=== PATIENT | female | born 1965 | race Caucasian/White ===

== ENCOUNTER 2019-05-29 10:28 | Outpatient (CLI) | payer OTHER, SELFPAY ==
--- NOTE | 2019-05-29 | US_ITS ---
WS: [id number] Assessment of the right Achilles tendon, 05/29/2019 Clinical Data: RT ANKLE/JOINT PAIN Comparison: None. Findings: The Achilles tendon shows a normal signal at the insertion into the posterior superior calcaneus. Pro ximally there is an area of increased irregular echotexture and thickening. This may represent a tear of the Achilles tendon with hemorrhage into the tear. The tear is probably partial rather than compl ete. US/US soft tissue/extremity 70138 Impression: Probable partial tear of the Achilles tendon
== END 2019-05-29 10:29 | disposition home or self-care (01) ==
LOC: RADOUTREAD 12:15
PROVIDERS: Visit Provider Nurse Practitioner Family
DX: Z01.89 Encounter for other specified special examinations (principal)

== ENCOUNTER 2019-11-18 15:17 | Outpatient (CLI) | payer OTHER, SELFPAY ==
--- NOTE | 2019-11-18 15:30 | MM_ITS ---
WS: [id number] BILATERAL SCREENING DIGITAL MAMMOGRAM WITH CAD HISTORY: SCREENING COMPARISON: 10/14/2018 and 11/16/2015 Bilateral CC and MLO views submitted. Computer aided detection analyzed. Breast composition: There are scattered areas of fibroglandular density. No suspicious masses, microc alcifications or architectural distortion. MM/[place] [id number] IMPRESSION: BI-RADS: 1-Negative FOLLOW UP: 1 Year Follow-up
== END 2019-11-18 15:18 | disposition home or self-care (01) ==
LOC: RADSHAW 15:23
PROVIDERS: PCP Nurse Practitioner Family; Visit Provider Nurse Practitioner Family
DX: Z12.31 Encounter for screening mammogram for malignant neoplasm of breast (principal)
CPT/HCPCS: 77067

== ENCOUNTER 2024-07-03 07:53 | Emergency (ER) | payer OTHER, SELFPAY ==
[2024-07-03 08:00] VITALS: BP 164/98; PULSE 75; RESP 16; TEMP 36.6; O2SAT 99; BMI 40.3
--- NOTE | 2024-07-03 08:17 | USCV_ITS ---
BonnieSelene cappsh Age: 59 Gender: F : 1965 Exam Date: 07/03/2024 08:52 Ordering Phys: Иван Thrasher DO Technologist: Exam Location: [facility] Indication: lt foot and ankle swelling and redness PROCEDURES: Venous duplex imaging was performed in only the left lower extremity. The following venous structures were evaluated: common femoral vein, profunda vein, proximal portion of the greater saphenous vein, superficial femoral vein, and the popliteal vein. In addition, the posterior tibial and peroneal trunk were evaluated. FINDINGS: Normal 2-D Doppler and augmentation and compressibility throughout the lower extremity venous structures. Additional imaging through the proximal calf veins also reveals no thrombus. Limited evaluation of the greater saphenous vein is patent with no thrombus. CONCLUSIONS No DVT left lower extremity. Dr. Trudi Ferro DO (Electronically Signed) Final Date: 03 July 2024 11:06 S
--- NOTE | 2024-07-03 08:17 | XR_ITS ---
WS: [id number] XR foot LT min 3V* [id number] REASON FOR EXAM: pain swelling Dorsal lateral dislocation of the the first through fifth with small comminuted fracture fragments related to the first through the third metatarsals. XR/XR foot LT min 3V* [id number] IMPRESSION: Complete homolateral Lisfranc fracture dislocation. Without history of significant trauma this may represent a neuropathic abnormal ity.
[2024-07-03 08:42] LABS: Basophils # 0.1 10^3/uL (0.0-0.1); Basophils % 0.7 %; Eosinophils # 0.5 10^3/uL (0.0-0.8); Eosinophils % 3.9 %; Hematocrit 36.5 % (36-47); Lymphocytes # 2.3 10^3/uL (0.8-4.8); Lymphocytes % 17.9 %; Mean Corpuscular HGB Conc 32.3 g/dL (30-55); Mean Corpuscular Hemoglobin 27.8 pg (27-33); Mean Corpuscular Volume 85.9 fl (85-98); Mean Platelet Volume 9.3 fL (7.4-10.4); Monocytes # 1.2 10^3/uL (0.2-0.9); Monocytes % 9.5 %; Neutrophils # 8.47 10^3/uL (1.8-7.7); Neutrophils % 67.4 %; Nucleated Red Blood Cells % 0 %; Platelet Count 325 10^3/cmm (157-399); Red Blood Count 4.25 10^6/uL (3.85-5.65); Red Cell Distribution Width 12.7 % (12.1-15.1); White Blood Count 12.57 10^3/uL (3.29-11.43)
[2024-07-03 09:04] LABS: Alanine Aminotransferase 10 U/L (0-33); Albumin Level 3.3 g/dL (3.5-5.2); Alkaline Phosphatase 91 U/L (35-105); Aspartate Amino Transferase 12 U/L (0-32); Blood Urea Nitrogen 21 mg/dL (8-23); C Reactive Protein 41.4 mg/L (0.0-4.9); Calcium 9.2 mg/dL (8.5-10.5); Carbon Dioxide 21 mmol/L (22-29); Chloride 99 mmol/L (98-107); Creatinine Clr Calc Pharmacy 100.5353; Globulin 3.4 g/dL (1.3-4.6); Glomerular Filtration Rate 85.1 mL/min (90-130); Glucose 247 mg/dL (65-115); Osmolality Calculated 287 mOsm/kg (285-295); Sodium 133 mmol/L (136-145); Total Bilirubin 0.4 mg/dL (0.15-1.2); Total Protein 6.7 g/dL (6.6-8.7)
[2024-07-03 09:08] LABS: Anion Gap 17.3 (5-19); Potassium 4.3 mmol/L (3.5-5.1)
[2024-07-03 09:41] VITALS: BP 154/82; PULSE 77; RESP 21; O2SAT 99
--- NOTE | 2024-07-03 09:56 | W.ED.EXTPRO ---
HPI - Extremity Problem General: Chief complaint: Extremity Problem,Nontraumatic Stated complaint: lt leg swollen Time Seen by Provider: 07/03/24 07:54 History of Present Illness: 59-year-old female presents emergency room with left leg swelling for the last week progressively worsening pain in the left foot and lower leg. No known injury she she has no history of DVT or PE. She has not had any calf pain per se no intermittent claudication. Patient is diabetic does have a history of hypertension no recent medication changes no history of gout Associated symptoms: Deny chest pain, fever(s) or rash Related Data Home Medications ?Medication ?Instructions ?Recorded ?Confirmed atenolol 50 mg tablet 50 mg PO BID 07/03/24 07/03/24 atorvastatin 20 mg tablet 20 mg PO QPM 07/03/24 07/03/24 brimonidine 0.1 % eye drops 1 drp ophthalmic (eye) TID 07/03/24 07/03/24 cyclobenzaprine 5 mg tablet 5 mg PO TID PRN low back pain 07/03/24 07/03/24 dorzolamide 22.3 mg-timolol 6.8 1 drp ophthalmic (eye) BID 07/03/24 07/03/24 mg/mL eye drops duloxetine 30 mg capsule,delayed 30 mg PO BID 07/03/24 07/03/24 release insulin glargine U-300 conc 300 35 unit SUBCUT BID 07/03/24 07/03/24 unit/mL (3 mL) subcutaneous pen (Toujeo Max U-300 SoloStar) lisinopril 20 mg tablet 20 mg PO DAILY 07/03/24 07/03/24 metformin 1,000 mg tablet 1,000 mg PO BID 07/03/24 07/03/24 Previous Rx's ?Medication ?Instructions ?Recorded hydrocodone 5 mg-acetaminophen 325 1 tab PO Q6H PRN pain #10 tabs 07/03/24 mg tablet Allergies Allergy/AdvReac Type Severity Reaction Status Date / Time blue dye Allergy ALGY-Hives Verified 07/03/24 08:12 Review of Systems Const: Denies: fever(s) or chills Card: Denies: chest pain Resp: Denies: dyspnea GI: Denies: abdominal pain : Denies: dysuria, urinary frequency or urinary urgency Musc: Denies: neck pain or back pain Skin/Breast: Denies: rash Physical Exam Const: GENERAL APPEARANCE: cooperative ORIENTATION/CONSCIOUSNESS: Yes awake, Yes oriented to person, Yes oriented to place and Yes oriented to time HENMT: COMMON NORMALS: normocephalic, atraumatic and hearing grossly normal bilaterally HEAD & SCALP: normocephalic and atraumatic Resp: COMMON NORMALS: normal respiratory effort, No retractions, No use of accessory muscles and clear to auscultation bilaterally AUSCULTATION: clear to auscultation bilaterally Cardio: COMMON NORMALS: regular rate, regular rhythm and No murmurs present (Cardio) RATE: regular rate RHYTHM: regular rhythm GI: COMMON NORMALS: Soft to palpation and No hepatosplenomegaly present AUSCULTATION: Yes normoactive bowel sounds PALPATION: Yes Soft to palpation, No Tenderness to palpation present (GI), No Guarding due to palpation present (GI) and Yes No hepatosplenomegaly present Extremity: COMMON NORMALS: normal to inspection, capillary refill normal, no clubbing, cyanosis or edema, no calf tenderness and no pedal edema Neuro: SENSORIUM/ORIENTATION: Yes oriented to person, Yes oriented to place and Yes oriented to time Skin: COMMON NORMALS: no rashes or lesions noted GENERAL SKIN EXAM: no rashes or lesions noted Course Vital Signs: Vital signs: Vital Signs Temperature 97.8 F 07/03/24 08:00 Pulse Rate 70 07/03/24 11:15 Respiratory Rate 16 07/03/24 11:15 Blood Pressure 136/82 07/03/24 11:15 Pulse Oximetry 100 07/03/24 11:15 Oxygen Delivery Me thod Room Air 07/03/24 08:00 MDM - Extremity (Nontraumatic) Medical Decision Making Patient has a Lisfranc fracture dislocation of the left foot. No history of any trauma suspect this is spontaneous likely associated with diabetes discussed with Dr. Berger who is on-call he concurs he recommends posterior splint not weight-bearing follow-up in the office where they will talk about treatment options. He states he prefer to wait until the swelling is started to improve. Medical Records I reviewed the patient's medical records. Lab Data I reviewed the patient's lab results. 07/03/24 08:27 07/03/24 08:27 Radiology Impressions Foot X-Ray 07/03/24 08:17 IMPRESSION: Complete homolateral Lisfranc fracture dislocation. Without history of significant trauma this may represent a neuropathic abnormality. Laboratory Results WBC 12.57 10^3/uL (3.29-11.43) H 07/03/24 08:27 RBC 4.25 10^6/uL (3.85-5.65) 07/03/24 08:27 Hgb 11.80 g/dL (11.27-16.99) 07/03/24 08:27 Hct 36.5 % (36-47) 07/03/24 08:27 MCV 85.9 fl (85-98) 07/03/24 08: MCH 27.8 pg (27-33) 07/03/24 08: MCHC 32.3 g/dL (30-55) 07/03/24 08:27 RDW 12.7 % (12.1-15.1) 07/03/24 08:27 Plt Count 325 10^3/cmm (157-399) 07/03/24 08:27 MPV 9.3 fL (7.4-10.4) 07/03/24 08:27 Neut % (Auto) 67.4 % 07/03/24 08:27 Lymph % (Auto) 17.9 % 07/03/24 08:27 Wetzel % (Auto) 9.5 % 07/03/24 08:27 Eos % (Auto) 3.9 % 07/03/24 08:27 Baso % (Auto) 0.7 % 07/03/24 08:27 Neut # (Auto) 8.47 10^3/uL (1.8-7.7) H 07/03/24 08:27 Lymph # (Auto) 2.3 10^3/uL (0.8-4.8) 07/03/24 08:27 Wetzel # (Auto) 1.2 10^3/uL (0.2-0.9) H 07/03/24 08:27 Eos # (Auto) 0.5 10^3/uL (0.0-0.8) 07/03/24 08:27 Baso # (Auto) 0.1 10^3/uL (0.0-0.1) 07/03/24 08:27 Nucleated RBC % (auto) 0 % 07/03/24 08:27 Nucleated RBCs # 0.0 /100WBC 07/03/24 08:27 Sodium 133 mmol/L (136-145) L 07/03/24 08:27 Potassium 4.3 mmol/L (3.5-5.1) 07/03/24 08:27 Chloride 99 mmol/L (98-107) 07/03/24 08:27 Carbon Dioxide 21 mmol/L (22-29) L 07/03/24 08:27 Anion Gap 17.3 (5-19) 07/03/24 08:27 BUN 21 mg/dL (8-23) 07/03/24 08:27 Creatinine 0.7 mg/dL (0.5-0.9) 07/03/24 08:27 GFR Calculation 85.1 mL/min (90-130) L 07/03/24 08:27 Glucose 247 mg/dL (65-115) H 07/03/24 08:27 Calculated Osmolality 287 mOsm/kg (285-295) 07/03/24 08:27 Calcium 9.2 mg/dL (8.5-10.5) 07/03/24 08:27 Total Bilirubin 0.4 mg/dL (0.15-1.2) 07/03/24 08:27 AST 12 U/L (0-32) 07/03/24 08:27 ALT 10 U/L (0-33) 07/03/24 08:27 Alkaline Phosphatase 91 U/L (35-105) 07/03/24 08:27 C-Reactive Protein 41.4 mg/L (0.0-4.9) H 07/03/24 08:27 Total Protein 6.7 g/dL (6.6-8.7) 07/03/24 08:27 Albumin 3.3 g/dL (3.5-5.2) L 07/03/24 08:27 Globulin 3.4 g/dL (1.3-4.6) 07/03/24 08:27 All radiology interpretation(s) finalized by discharge Discharge Plan Discharge Patient Disposition: Home Clinical Impression: Lisfranc's dislocation, Diabetes mellitus Condition: Stable Prescriptions: New hydrocodone-acetaminophen 5-325 mg tablet 1 tab PO Q6H PRN (Reason: pain) Qty: 10 0RF No Action atorvastatin 20 mg tablet 20 mg PO QPM lisinopril 20 mg tablet 20 mg PO DAILY metformin 1,000 mg tablet 1,000 mg PO BID dorzolamide-timolol 22.3-6.8 mg/mL drops 1 drp ophthalmic (eye) BID atenolol 50 mg tablet 50 mg PO BID cyclobenzaprine 5 mg tablet 5 mg PO TID PRN (Reason: low back pain) duloxetine 30 mg capsule,delayed release(DR/EC) 30 mg PO BID brimonidine 0.1 % drops 1 drp ophthalmic (eye) TID insulin glargine U-300 conc [Toujeo Max U-300 SoloStar] 300 unit/mL (3 mL) insulin pen 35 unit SUBCUT BID Discharge Orders: Discharge ED (Routine); Ordered 07/03/24 Ordered By: Иван Thrasher Referrals: Kath Paris FNP [Primary Care Provider] - Discharge Diet: Usual diet Discharge Activity: Limit activity as instructed Patient Instructions: Opioid Safety, Pain Management Activity Restrictions/Additional Instructions: Thank you for choosing [facility] for your healthcare needs today. It is very important that you follow up as instructed or that you return to the Emergency Department should you have concerns or if your condition changes or worsens in any way. You were seen in the emergency room for swelling in your foot you have a dislocation of your foot called a Lisfranc dislocation. This is likely related to weakening of the ligaments due to your diabetes. This will need to be surgically repaired at a later date once the swelling is gone down. I have discussed your case with the on-call shredder/granulator operator he recommends splinting and nonweightbearing and follow-up in the clinic. clinical manager will make arrangements for the follow-up appointment. You are also given pain medications to use as needed. You should not bear any weight on this foot until you are cleared by the shredder/granulator operator. Print Language: Hungarian Coding Level of Care Code ED Political Reporter for Jerel Bedolla
[2024-07-03 10:11] VITALS: BP 150/91; PULSE 76; RESP 24; O2SAT 98
[2024-07-03 10:41] VITALS: BP 128/76; PULSE 70; RESP 17; O2SAT 100
[2024-07-03 11:15] VITALS: BP 136/82; PULSE 70; RESP 16; O2SAT 100
--- NOTE | 2024-07-03 11:20 | PC.NURSE ---
pt was educated on the use of crutches, pt was unable to effectively use crutches an states that it is difficult for her to use the crutches and she would like a knee scooter. pt was instructed to see her PCP for the prescription for a scooter. pt called her provider and spoke with them about scooter
--- NOTE | 2024-07-06 09:38 | DCPLANNER ---
Referral sent to podiatry: 59-year-old female presents emergency room with left leg swelling for the last week progressively worsening pain in the left foot and lower leg. a dislocation of your foot called a Lisfranc dislocation. I have discussed your case with the on-call coil builder he recommends splinting and nonweightbearing and follow-up in the clinic.
== END 2024-07-03 11:25 | disposition home or self-care (01) ==
PROVIDERS: Emergency Provider Family Medicine; PCP Nurse Practitioner Family
DX: S93.335A Other dislocation of left foot, initial encounter (principal); Z79.84 Long term (current) use of oral hypoglycemic drugs; Z79.4 Long term (current) use of insulin; E11.9 Type 2 diabetes mellitus without complications; X58.XXXA Exposure to other specified factors, initial encounter
CPT/HCPCS: 29515; 73630; 80053; 85025; 86140; 87040; 93971; 99284; E0114

== ENCOUNTER 2024-07-06 13:14 | Outpatient (CLI) | payer OTHER, SELFPAY | END 2024-07-06 13:15 | disposition home or self-care (01) | LOC: SPT 13:17 | PROVIDERS: PCP Nurse Practitioner Family; Visit Provider Podiatrist Foot & Ankle Surgery | DX: Z46.89 Encounter for fitting and adjustment of other specified devices (principal); S93.325D Dislocation of tarsometatarsal joint of left foot, subsequent encounter; X58.XXXD Exposure to other specified factors, subsequent encounter | CPT/HCPCS: 97760; L4361 ==

== ENCOUNTER 2024-07-09 05:58 | Day surgery (SDC) | payer OTHER, SELFPAY ==
[2024-07-09] VITALS (9 sets, daily range): BP systolic 103–168; BP diastolic 58–109; PULSE 75–81; RESP 16–18; TEMP 36.3–36.5; O2SAT 92–99; BMI 38.6
--- NOTE | 2024-07-09 | XR_ITS ---
WS: [id number] C-ARM RADIOGRAPHS LEFT FOOT; 2 IMAGES HISTORY: LEFT FOOT SURGERY COMPARISON: 07/03/2024 Repair of the Lisfranc dislocation previously described at the tarsometatarsal articulation. There is extensive screw fixation and wire fixation. These images were obtained intraoperative. XR/XR foot LT 2V [id number] IMPRESSION: Intraoperative imaging during repair of the Lisfranc dislocation.
--- NOTE | 2024-07-09 06:23 | ANES.PREANE2 ---
Pre-Anesthetic Assessment Height/Weight: Height 5 ft 4 in Weight 225 lb Temp Pulse Resp BP Pulse Ox O2 Del Method 97.7 F 76 18 168/109 97 Room Air 07/09/24 06:12 07/09/24 06:12 07/09/24 06:12 07/09/24 06:12 07/09/24 06:12 07/09/24 06:13 Preop Diagnosis: Left first, second, third, fourth, fifth metatarsal fractures. Operation Date: 07/09/24 07:00 Proposed Procedures p ORIF Metatarsal left first metatarsal fracture dislocation, second metatarsal fracture dislocation, third metatarsal fracture dislocation, fourth metatarsal fracture dislocation, fifth metatarsal fracture dislocation(Left) - Prasanna Berger DPM s Achilles tendon lengthening(Left) - Prasanna Berger DPM Was Beta Perico taken within 24 hours: Yes Was Clonidine taken within 24 hours: N/A Last intake: Intake Last Liquid Date 07/08/24 Last Liquid Time 21:00 Last Solid Date 07/08/24 Last Solid Time 18:30 Social No alcohol and No tobacco Exam alert, oriented x 3, clear to auscultation bilaterally and regular rate & rhythm Airway Submandibular: within normal limits Cervical ROM: within normal limits Mallampati: Class I Dentition: full Anesthetic Plan ASA status: 3 Anesthesia: General Other: No prior issues with anesthesia NPO since yesterday evening History of hypertension on atenolol and lisinopril. Preop BP 168/109 Type 2 diabetes, on chronic insulin. She states that she was told to not take this for the last 2 days. Waiting for preop BS check Denies any pulmonary issues Prior to foot injury, METs greater than 4 Labs 07/03/2024 reviewed and acceptable for procedure EKG ordered Plan for general anesthesia with peripheral nerve block Medications/Allergies Home Medications ?Medication ?Instructions ?Recorded ?Confirmed ?Last Taken ?Type atenolol 50 mg tablet 50 mg PO BID 07/03/24 07/08/24 07/08/24 History atorvastatin 20 mg tablet 20 mg PO QPM 07/03/24 07/08/24 07/08/24 History brimonidine 0.1 % eye drops 1 drp ophthalmic (eye) TID 07/03/24 07/08/24 07/08/24 History cyclobenzaprine 5 mg tablet 5 mg PO TID PRN low back pain 07/03/24 07/08/24 Unknown History dorzolamide 22.3 mg-timolol 6.8 1 drp ophthalmic (eye) BID 07/03/24 07/08/24 07/08/24 History mg/mL eye drops duloxetine 30 mg capsule,delayed 30 mg PO BID 07/03/24 07/08/24 07/08/24 History release hydrocodone 5 mg-acetaminophen 325 1 tab PO Q6H PRN pain #10 tabs 07/03/24 07/08/24 Unknown Rx mg tablet insulin glargine U-300 conc 300 35 unit SUBCUT BID 07/03/24 07/08/24 07/08/24 History unit/mL (3 mL) subcutaneous pen (Toujeo Max U-300 SoloStar) lisinopril 20 mg tablet 20 mg PO DAILY 07/03/24 07/08/24 07/08/24 History metformin 1,000 mg tablet 1,000 mg PO BID 07/03/24 07/08/24 07/08/24 History Wheelchair with elevated leg rest #1 ea 07/06/24 07/06/24 Unknown Rx to left cam boot left #1 ea 07/06/24 07/06/24 Unknown Rx Allergies Allergy/AdvReac Type Severity Reaction Status Date / Time blue dye Allergy ALGY-Hives Verified 07/08/24 09:08 [facility] Anesthesia Social History Smoking and tobacco/nicotine status: never used tobacco/nicotine Data Anesthesia Cardiac Studies: No Data to Display
[2024-07-09] MEDS: sodium chloride 0.9% 1,000 ML 30 ML IV (06:29)
[2024-07-09 06:31] LABS: Glucose Point of Care 176 mg/dL (70-110)
--- NOTE | 2024-07-09 06:38 | ECG_ITS ---
Fleep Test Date: 2024-07-09 Pat Name: Cathryn Nicole Department: Room: Gender: Female Marketing Operations Manager: : 1965 Requested By: Kevan Gabriel Order Number: [id number] Sae MD: Shanae Butler M.D. Measurements Intervals [place] Rate: 71 P: -34 CO: 159 QRS: -14 QRSD: 100 T: 35 QT: 428 QTc: 468 Interpretive Statements SINUS RHYTHM WITH OCCASIONAL SUPRAVENTRICULAR PREMATURE COMPLEXES MINIMAL VOLTAGE CRITERIA FOR LVH, CONSIDER NORMAL VARIANT [MEETS CRITERIA IN ONE OF: R(aVL), S(V1), R(V5), R(V5/V6)+S(V1)] No previous ECG available for comparison Electronically Signed On 07-11-2024 13:29:41 CDT by Shanae Butler M.D. [email or web address]
--- NOTE | 2024-07-09 06:39 | W.PM.OPSUD ---
Surgery/Procedure H&P Update DATE OF PROCEDURE: July 09, 2024 DATE H&P PERFORMED: 07/06/24 H&P UPDATE INFORMATION: I have reviewed H&P completed within last 30 days, I have examined patient prior to procedure, No changes to prior documentation and Risks and benefits of the procedure reviewed PREOP DIAGNOSIS: Left first, second, third, fourth, fifth metatarsal fractures. PLANNED PROCEDURE: Operation Date: 07/09/24 07:00 Proposed Procedures p ORIF Metatarsal left first metatarsal fracture dislocation, second metatarsal fracture dislocation, third metatarsal fracture dislocation, fourth metatarsal fracture dislocation, fifth metatarsal fracture dislocation(Left) - Prasanna Berger DPM s Achilles tendon lengthening(Left) - Prasanna Berger DPM
--- NOTE | 2024-07-09 07:12 | W.PM.BPON ---
Date of Procedure: 06/14/23 Surgeon: Prasanna Berger DPM Emergency Spill Response Technician(s): Karlene Wilson Procedure(s) performed: Left Achilles lengthening and open reduction internal fixation left first, second, third, fourth, fifth metatarsal fracture. Findings of the procedure(s): Fracture dislocation of metatarsals 1 through 5 left foot at tarsometatarsal joint. Estimated blood loss: 5 Specimen(s) removed: No specimens Post-operative diagnosis: Left ankle equinus, left first, second, third, fourth, fifth metatarsal fracture.
--- NOTE | 2024-07-09 07:13 | P.OP_ITS ---
Operative Report Date of procedure: July 09, 2024 Pre-op diagnosis: Type 2 diabetes mellitus with other specified complication, unspecified whether manager long term care insulin use E11.69, Dislocation of tarsometatarsal joint of left foot, initial encounter S93.325A, Displaced fracture of first metatarsal bone, left foot, initial encounter for closed fracture S92.312A, Displaced fracture of second metatarsal bone, left foot, initial encounter for closed fracture S92.322A, Displaced fracture of third metatarsal bone, left foot, initial encounter for closed fracture S92.332A, Displaced fracture of fourth metatarsal bone, left foot, initial encounter for closed fracture S92.342A, Displaced fracture of fifth metatarsal bone, left foot, initial encounter for closed fracture S92.352A Dislocation of left foot, initial encounter S93.305A and Left ankle equinus M24.572 Post-op diagnosis: Type 2 diabetes mellitus with other specified complication, unspecified whether group home insulin use E11.69, Dislocation of tarsometatarsal joint of left foot, initial encounter S93.325A, Displaced fracture of first metatarsal bone, left foot, initial encounter for closed fracture S92.312A, Displaced fracture of second metatarsal bone, left foot, initial encounter for closed fracture S92.322A, Displaced fracture of third metatarsal bone, left foot, initial encounter for closed fracture S92.332A, Displaced fracture of fourth metatarsal bone, left foot, initial encounter for closed fracture S92.342A, Displaced fracture of fifth metatarsal bone, left foot, initial encounter for closed fracture S92.352A Dislocation of left foot, initial encounter S93.305A and Left ankle equinus M24.572 Procedure done: 1) open reduction internal fixation left first metatarsal fracture dislocation. CPT code 54904 2) open reduction internal fixation left second metatarsal fracture dislocation. CPT code 50780 3) open reduction internal fixation left third metatarsal fracture dislocation. CPT code 08430 4) open reduction internal fixation left fourth metatarsal fracture dislocation. CPT code 45653 5) open reduction internal fixation left fifth metatarsal fracture dislocation. CPT code 06050 Implants: 4-0 nylon Specimens removed/disposition: No micro specimens Pathology: No pathology specimens Surgeon: Prasanna Berger DPM Manager Operations Research: Lan Wilson Haley Estimated blood loss: 25 mL 90 minutes IV fluids: See intraoperative documentation Urine output: None Complications: None Brief History: 59 year old female patient presenting to clinic for evaluation of left foot. Patient denies any known injury. Patient reports that she went to ED on 07/03/24 due to increase pain and swelling to left foot. Xrays were obtained on Saturday07/03/24. The patient is a 59-year-old female presenting with a complete homolateral dislocation of the left Lisfranc joint, noted to begin over a week prior. The swelling was first observed by the patient?s sister and continued to progress. Despite the absence of significant trauma, the dislocation is attributed to diabetic complications affecting ligament integrity. The patient reports minimal current pain but has faced challenges with weight bearing due to previous Achilles tendon surgery in 2020. 59-year-old female with history of diabetes presenting with complete homolateral dislocation of the left Lisfranc joint. The injury is compounded by poor glycemic control and diabetes-related musculoskeletal complications. A staged approach to surgical intervention is recommended due to the severity of dislocation and high A1c levels, to mitigate postoperative complications. 1. Diabetes Mellitus Managing the patient's diabetes with improved glycemic control is crucial. Preoperative cessation of Januvia minimizes anesthesia risks, and enhanced glucose management should target an A1c under 8.0. 2. Hyperglycemia Diabetes control is essential, particularly in pre-operative settings. Metformin will be continued, while Januvia will be stopped to prevent complications. Further endocrine consultation will support achieving targeted glucose levels. 3. Lisfranc Joint Dislocation The patient requires surgical reduction and temporary fixation of the dislocated Lisfranc joint. Since uncontrolled diabetes affects healing, a staged surgical plan with initial stabilization followed by definitive fusion is recommended. Weight-bearing is strictly prohibited to prevent further injury. - Do not bear weight on the affected left foot; use a wheelchair or walker with a seat for mobility. - Continue taking Metformin as prescribed. - Stop taking Januvia until instructed post-surgery. - Attend scheduled follow-up appointments and manage blood glucose levels as instructed. - Seek immediate medical attention if there is increased pain, swelling, or if the skin integrity is compromised. The patient's complete homolateral dislocation of the left Lisfranc joint, compounded by uncontrolled diabetes, indicates a high-risk situation. A staged surgical approach is deemed necessary due to high A1c levels, prioritizing initial stabilization and later definitive fusion once glycemic control is optimized. Limiting weight-bearing is critical to prevent further dislocation or potential skin perforation. Immediate cessation of Januvia is advised to mitigate anesthesia-related risks. Post-operative management will target glucose optimization to enhance healing potential, with plans for a possible endocrino logy referral to achieve and maintain target glycemic results for surgical readiness. Patient requires wheelchair she is not a candidate for crutches due to upper body strength and poor balance and she will require a wheelchair for likely 1 year or greater. She requires bilateral leg rest and ability to elevate her left leg with a wheelchair. I reviewed at length with the patient, the risks, potential complications, benefits, alternatives, expectations, and typical outcomes associated with the surgery. The risks and potential complications were explained in detail, including but not limited to infection, wound dehiscence or soft tissue complications, bleeding and hematoma, chronic edema, neuritis or nerve damage producing numbness or chronic pain, CRPS, failure to relieve pain or worsening pain, thick / painful / unsightly scar, limited motion / stiffness, malposition, delayed union, malunion, or nonunion, fracture, reaction to implants, anesthetic complications, venous thromboembolism, and deformity recurrence. I discussed the notion of no regrets with the patient as it pertains to complications and outcomes. The patient seemed to understand the nature of the proposed care and required convalescence. They asked appropriate questions, answered to their satisfaction. They are aware no guarantees can be made as to a satisfactory outcome and they understand there may be other possible unforeseen complications or outcomes not listed here that will be treated accordingly if they arise. There were no written or implied guarantees given to the patient. They gave informed consent to proceed. Procedure: Under mild sedation patient was brought to the operating room and remained on the gurney in supine position. A timeout is performed. Popliteal block performed to the left lower extremity per anesthesia service. Anesthesia was then administered by the anesthesia service. Well-padded pneumatic tourniquet was applied to the left high calf. Left lower extremity was scrubbed, prepped and draped utilizing normal aseptic technique. Left foot and ankle were exanguinated with Esmarch bandage and tourniquet inflated to 250 mmHg. Attention was directed to the left foot where 5 separate incisions were performed through skin with a #15 blade over the dorsal medial aspect of the first tarsometatarsal joint, dorsally over the second tarsometatarsal joint, dorsally over the third tarsometatarsal joint and dorsally over the 4th and 5th tarsometatarsal joints. Dissection was carried down through subcutaneous tissue to the level of the first, second, third, fourth, fifth metatarsals utilizing a combination of sharp and blunt technique. Care was taken to retract and preserve neurovascular and tendinous structures. All bleeders were ligated and cauterized as necessary. Once the base of the first, second, third, fourth, fifth metatarsals were identified mini C arm fluoroscopy was employed in the standard AP, oblique and lateral views to confirm complete homolateral dislocation of the tarsometatarsal joint on metatarsals 1 through 5. The first metatarsal, second metatarsal, third metatarsal, fourth metatarsal and fifth metatarsal demonstrated fracture dislocation dorsally and laterally, with significant effort and fracture reduction forceps utilizing dual fracture clamps and manual distraction the metatarsals were unable to be anatomically reduced necessitating more aggressive means of distraction due to soft tissue contracture. Utilizing 2 mm Steinmann pins across the cuneiforms and cuboid as well as metatarsal bases 2 mm Steinmann pins were advanced from medial to lateral under fluoroscopy and utilizing a Dariusz self-retaining multiplanar distractor the forefoot was distracted at metatarsals 1, 2, 3, 4, 5 distally and can third plantarly with improved alignment, intraoperative difficulty initially with the first metatarsal base was overcome with a self-retaining retractor and this was reduced near anatomically and fixated utilizing standard AO technique with a [place] headless 4 mm cannulated screw oriented from dorsal distal to proximal plantar not violating the cuneiform navicular joint this was confirmed with AP, oblique and lateral views of mini C arm and noted to be excellent in all 3 planes with excellent bony apposition and come pression noted and near anatomic reduction of the previously fully dislocated first metatarsal and medial cuneiform fracture dislocation. In a stepwise fashion working from medial to lateral utilizing the Steinmann pins for distraction and fracture reduction clamps the second metatarsal base was reduced to its maximally obtained reduction without risking collateral injury or iatrogenic fracture and fixated with 2 homerun screws these were [place] 4 mm headless screws x 2 with excellent bony apposition and compression and near anatomic reduction of the second metatarsal base to the intermediate cuneiform in the AP, oblique and lateral views. Fixation was obtained in the second metatarsal with homerun screws utilizing standard AO technique. Attention was then directed to the third metatarsal fracture dislocation which was reduced anatomically and fixated from dorsal distal to proximal plantar utilizing standard AO technique with a [place] 4 mm headless screw fixating the third metatarsal to its respective lateral cuneiform. The left 4th and 5th metatarsals were reduced from their fracture dislocation and fixated with 0.063 K wires from dorsal distal to proximal plantar into the cuboid bone with excess wire being trimmed and covered with Anna balls. Significant improvement in fracture dislocation of the first, second, third, fourth, fifth metatarsals of the left foot appreciated with final fluoroscopy in the AP, oblique and lateral views. This is a staged procedure patient has a elevated A1c, most recent lab finding for A1c is 9.7, wishing to avoid more expansive incisions and more demands for healing when A1c is at 9.7 at this time open reduction internal fixation of metatarsal fractures is preferred and will require a staged approach, once her A1c is below 8.0 she would be a candidate for staged arthrodesis for more definitive long-term stability. Will also require a tendo Achilles lengthening staged out. The incisions were irrigated with copious amounts of sterile saline solution and closed with 4-0 nylon. All incisions were then dressed with Xeroform, gauze, Kerlix, cast padding followed by application of a well-padded multilayer posterior splint. Tourniquet was then deflated and a prompt hyperemic response is noted to the distal digits of the left foot. Patient tolerated the procedure and anesthesia well and was transferred to the PACU with vital signs stable and vascular status intact. Following a period of postoperative monitoring she will be discharged home and was advised to remain strict nonweightbearing to the left foot as to protect from further injury or dislocation. Patient was given at home care instructions and scheduled follow-up as well as my cell phone number to contact with any postoperative questions or concerns. Was referred to endocrinology to facilitate optimal glycemic control for previously mentioned stage procedure.
[2024-07-09] MEDS: ceFAZolin 2,000 mg SDV 2000 MG IVP (07:20)
--- NOTE | 2024-07-09 07:24 | ANES.PROC ---
Anesthesia Procedures Procedure/Date: 07/09/24 Nerve Block ^: Nerve Block 1: Main Anesthesia: general anesthesia Time Out Performed: Yes Consent: requested by attending/covering physician and from patient Nerve block location: popliteal Anesthesia monitors applied: pulse oximetry, EKG, BP cuff and oxygen Nerve block position: supine Anesthetic Used: ropivicaine 0.5% Amount of anesthesia used (mL): 25 Ultrasound used to: recognize landmarks Nerve Stimulator Used?: Yes Interscalene/Femoral BLK: other needle (pjunk) Injection: neg aspiration of heme Patient Tolerated Procedure: well Complications: none Nerve Block 2: Main Anesthesia: general anesthesia Time Out Performed: Yes Consent: requested by attending/covering physician and from patient Nerve block location: adductor canal Anesthesia monitors applied: pulse oximetry, EKG, BP cuff and oxygen Nerve block position: supine Anesthetic Used: ropivicaine 0.5% Amount of anesthesia used (mL): 15 Ultrasound used to: recognize landmarks Nerve Stimulator Used?: No Interscalene/Femoral BLK: other needle (pjunk) Injection: neg aspiration of heme Patient Tolerated Procedure: well Complications: none
[2024-07-09 09:29] LABS: Glucose Point of Care 158 mg/dL (70-110)
[2024-07-09] MEDS: HYDROcodone-acetaminophen 5-325 mg Tablet 1 TAB PO (10:09)
--- NOTE | 2024-07-09 10:42 | ANE.PACU2 ---
Inpatient post-anesthesia follow up: Airway intact: Yes Vital signs: Temperature 97.6 F Pulse Rate 75 Respiratory Rate 16 Blood Pressure 122/71 Pulse Oximetry 92 Oxygen Delivery Me thod Room Air Oxygen Flow Rate 6 Fraction of Inspir ed Oxygen Hydration adequate: Yes Nausea and vomiting: No Pain level: 1 Mental status: Baseline
== END 2024-07-09 10:42 | disposition home or self-care (01) ==
PROVIDERS: PCP Nurse Practitioner Family; Visit Provider Podiatrist Foot & Ankle Surgery
PROC: (CPT 28485; principal; 2024-07-09 07:00)
DX: S92.312A Displaced fracture of first metatarsal bone, left foot, initial encounter for closed fracture (principal); S93.325A Dislocation of tarsometatarsal joint of left foot, initial encounter; S92.322A Displaced fracture of second metatarsal bone, left foot, initial encounter for closed fracture; S92.332A Displaced fracture of third metatarsal bone, left foot, initial encounter for closed fracture; S92.342A Displaced fracture of fourth metatarsal bone, left foot, initial encounter for closed fracture; S92.352A Displaced fracture of fifth metatarsal bone, left foot, initial encounter for closed fracture; M24.572 Contracture, left ankle; E11.69 Type 2 diabetes mellitus with other specified complication; Z79.84 Long term (current) use of oral hypoglycemic drugs; I10 Essential (primary) hypertension; Z79.899 Other long term (current) drug therapy; Z79.4 Long term (current) use of insulin; X58.XXXA Exposure to other specified factors, initial encounter
CPT/HCPCS: 28485 ×5; 36416; 73620; 76000; 82962; 93005; C1713; J0330; J0690; J1100; J2405; J2704; J3010; J3490; J7030; J9999

== ENCOUNTER → 2024-07-23 13:03 | Outpatient (BNVA) | payer OTHER, SELFPAY | PROVIDERS: PCP Nurse Practitioner Family; Visit Provider Podiatrist Foot & Ankle Surgery | DX: S93.325D Dislocation of tarsometatarsal joint of left foot, subsequent encounter (principal); S93.14 Subluxation of metatarsophalangeal joint; X58.XXXD Exposure to other specified factors, subsequent encounter | CPT/HCPCS: 73630 ==

== ENCOUNTER → 2024-07-29 10:30 | Outpatient (BNVA) | payer OTHER, SELFPAY | PROVIDERS: PCP Nurse Practitioner Family; Visit Provider Internal Medicine | DX: E78.5 Hyperlipidemia, unspecified (principal); E11.9 Type 2 diabetes mellitus without complications | CPT/HCPCS: 36415; 80053; 80061; 82044; 82947; 83036; 84681; 86337; 86341 ==

== ENCOUNTER → 2024-08-06 14:40 | Outpatient (BNVA) | payer OTHER, SELFPAY | PROVIDERS: PCP Nurse Practitioner Family; Visit Provider Podiatrist Foot & Ankle Surgery | DX: Z98.890 Other specified postprocedural states (principal); S93.305 Unspecified dislocation of left foot; X58.XXXD Exposure to other specified factors, subsequent encounter; E11.69 Type 2 diabetes mellitus with other specified complication; Z79.84 Long term (current) use of oral hypoglycemic drugs; Z79.4 Long term (current) use of insulin | CPT/HCPCS: 73630 ==

== ENCOUNTER 2024-08-21 07:12 | Day surgery (SDC) | payer OTHER, SELFPAY ==
[2024-08-21] VITALS (9 sets, daily range): BP systolic 110–144; BP diastolic 64–99; PULSE 70–77; RESP 13–18; TEMP 36.1–36.6; O2SAT 91–100; BMI 37.8
[2024-08-21] MEDS: sodium chloride 0.9% 1,000 ML 30 ML IV (07:39)
[2024-08-21 07:52] LABS: Glucose Point of Care 149 mg/dL (70-110)
--- NOTE | 2024-08-21 08:19 | ANES.PREANE2 ---
Pre-Anesthetic Assessment Height/Weight: Height 1.63 m Weight 99.79 kg Temp Pulse Resp BP Pulse Ox O2 Del Method 97.7 F 75 16 144/99 97 Room Air 08/21/24 07:25 08/21/24 07:25 08/21/24 07:25 08/21/24 07:25 08/21/24 07:25 08/21/24 07:25 Preop Diagnosis: Left midfoot fracture dislocation. Operation Date: 08/21/24 08:50 Proposed Procedures p Multiple midfoot fusion(Left) - MADNY Avalos Achilles Lengthening(Left) - MANDY Avalos Bone Autograft Calcaneal Autograft(Left) - MANDY Avalos Deep hard removal foot(Left) - Prasanna Berger DPM Familial anesthetic complications: NOne Was Beta Perico taken within 24 hours: N/A Was Clonidine taken within 24 hours: N/A Last intake: Intake Last Liquid Date 08/20/24 Last Liquid Time 06:00 Last Solid Date 08/20/24 Last Solid Time 19:00 Social No alcohol and No tobacco Exam alert, oriented x 3, clear to auscultation bilaterally and regular rate & rhythm Airway Mallampati: Class I Dentition: full CV/HEM Hypertension Metabolic Diabetes Mellitus and Hyperlipidemia Neuropsych Neuropathy (Left Lower extremity neuropathy) Anesthetic Plan ASA status: 3 Anesthesia: General and Regional (specify below) Risk of > 500 ml blood loss (7ml/kg in children): No Medications/Allergies Home Medications ?Medication ?Instructions ?Recorded ?Confirmed ?Last Taken ?Type atenolol 50 mg tablet 50 mg PO BID 07/03/24 08/20/24 08/21/24 History atorvastatin 20 mg tablet 20 mg PO QPM 07/03/24 08/20/24 08/20/24 History brimonidine 0.1 % eye drops 1 drp ophthalmic (eye) TID 07/03/24 08/20/24 08/20/24 History dorzolamide 22.3 mg-timolol 6.8 1 drp ophthalmic (eye) BID 07/03/24 08/20/24 08/20/24 History mg/mL eye drops duloxetine 30 mg capsule,delayed 30 mg PO BID 07/03/24 08/20/24 08/20/24 History release insulin glargine U-300 conc 300 62 unit SUBCUT BEDTIME 07/03/24 08/20/24 08/20/24 History unit/mL (3 mL) subcutaneous pen (Wilbur Servin U-300 SoloStar) lisinopril 20 mg tablet 20 mg PO DAILY 07/03/24 08/20/24 08/20/24 History metformin 1,000 mg tablet 1,000 mg PO BID 07/03/24 08/20/24 08/20/24 History Wheelchair with elevated leg rest #1 ea 07/06/24 08/11/24 Unknown Rx to left cam boot left #1 ea 07/06/24 08/11/24 Unknown Rx hydrocodone 5 mg-acetaminophen 325 1 tab PO Q6H PRN pain 7 days #28 07/23/24 08/20/24 08/17/24 Rx mg tablet tabs Allergies Allergy/AdvReac Type Severity Reaction Status Date / Time blue dye Allergy ALGY-Hives Verified 08/11/24 16:31 Current Medications Generic Name Dose Route Start Last Admin Trade Name Freq PRN Reason Stop Dose Admin Sodium Chloride 1,000 mls @ 30 mls/hr 08/21/24 07:15 08/21/24 07:39 Sodium Chloride 0.9% IV 08/22/24 07:14 30 mls/hr .Q24H DONATO Administration PFSH Anesthesia Social History Smoking and tobacco/nicotine status: unknown if used tobacco/nicotine Anesthesia Procedures Nerve Block Nerve Block 1: Main Anesthesia: general anesthesia Time Out Performed: Yes Consent: requested by attending/covering physician, from patient, from other, risks and benefits reviewed and patient agrees to proceed Nerve block location: popliteal (L) Anesthesia monitors applied: pulse oximetry, EKG, BP cuff and oxygen Nerve block position: supine Anesthetic Used: ropivicaine 0.5% (30 ml) and with decadron (4 mg) Ultrasound used to: recognize landmarks Nerve Stimulator Used?: No Interscalene/Femoral BLK: 4 stimuplex 21 g needle used for position and inplane approach, visualize local anesthetic spread and no vascular puncture identified Injection: neg aspiration of heme Patient Tolerated Procedure: well Complications: none
--- NOTE | 2024-08-21 08:24 | W.PM.OPSUD ---
Surgery/Procedure H&P Update DATE OF PROCEDURE: August 21, 2024 DATE H&P PERFORMED: 08/06/24 H&P UPDATE INFORMATION: I have reviewed H&P completed within last 30 days, I have examined patient prior to procedure, No changes to prior documentation and Risks and benefits of the procedure reviewed PREOP DIAGNOSIS: Left midfoot fracture dislocation. PLANNED PROCEDURE: Operation Date: 08/21/24 08:50 Proposed Procedures p Multiple midfoot fusion(Left) - MANDY Avalos Achilles Lengthening(Left) - MANDY Avalos Bone Autograft Calcaneal Autograft(Left) - MANDY Avalos Deep hard removal foot(Left) - Prasanna Begrer DPM
[2024-08-21] MEDS: ceFAZolin 2,000 mg SDV 2000 MG IVP (08:35)
[2024-08-21] MEDS: tranexamic acid 1,000 mg/10mL SDV 1000 MG IV (08:40)
--- NOTE | 2024-08-21 09:42 | XR_ITS ---
WS: [id number] C-ARM RADIOGRAPHS LEFT FOOT; 2 IMAGES HISTORY: OR PIC, LEFT FOOT COMPARISON: 07/09/2024 Intraoperative revision orthopedic hardware in the LEFT foot at the tarsal metatarsal junction. Plate and screw fixation between the first tarsometatarsal articulation and screw fixation. There is an additional plate involving the second tarsometatarsal location. Very slight widening between the first and second metatarsal suspected but it does appear improved as compared to the recent radiograph. XR/XR foot LT 2V [id number] IMPRESSION: Intraoperative revision orthopedic hardware at the tarsal metatarsal joint.
--- NOTE | 2024-08-21 10:15 | W.PM.BPON ---
Date of Procedure: 06/14/23 Surgeon: Prasanna Berger DPM Assistant Finance Director(s): Jorge Procedure(s) performed: Left Achilles lengthening, hardware removal left foot. Left midfoot fusion 1st and 2nd tarsometatarsal joint. Findings of the procedure(s): Gross instability at left midtarsal joint. Estimated blood loss: 5 mL Specimen(s) removed: None Post-operative diagnosis: Left foot fracture dislocation at midtarsal joint,
--- NOTE | 2024-08-21 10:16 | PM.OP ---
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 CPT code 61495 2) left Achilles lengthening. CPT code 52853 3) deep hardware removal left foot third ray. CPT code 27765 4) deep hardware removal left foot 1st and 2nd ray. CPT code 37167 (separate incision) Implants: [place] Lapidus plate with 3.5 mm locking screws and 4 mm homerun screw. [place] straight slanted plate with 3.5 mm locking screws. 2-0 Vicryl, 3-0 Vicryl, skin chaparro, 4 nylon Pathology: No pathology specimens Surgeon: Prasanna Berger DPM [place] Paver: Adamaris Huff Estimated blood loss: 5 82 IV fluids: See intraoperative documentation n Urine output: None Complications: None Brief History: X-ray left foot 3 view shows intact hardware without lucency or failure. Lisfranc dislocation redemonstrated. Significant improvement with glycemic control, greatly appreciate Dr. Arun LI with excellent glycemic control optimizing patient for surgical reconstruction of left foot. Would entail hardware removal and left tarsometatarsal joint arthrodesis with Achilles tendon lengthening. I reviewed at length with the patient, the risks, potential complications, benefits, alternatives, expectations, and typical outcomes associated with the surgery. The risks and potential complications were explained in detail, including but not limited to infection, wound dehiscence or soft tissue complications, bleeding and hematoma, chronic edema, neuritis or nerve damage producing numbness or chronic pain, CRPS, failure to relieve pain or worsening pain, thick / painful / unsightly scar, limited motion / stiffness, malposition, delayed union, malunion, or nonunion, fracture, reaction to implants, anesthetic complications, venous thromboembolism, and deformity recurrence. I discussed the notion of no regrets with the patient as it pertains to complications and outcomes. The patient seemed to understand the nature of the proposed care and required convalescence. They asked appropriate questions, answered to their satisfaction. They are aware no guarantees can be made as to a satisfactory outcome and they understand there may be other possible unforeseen complications or outcomes not listed here that will be treated accordingly if they arise. There were no written or implied guarantees given to the patient. They gave informed consent to proceed. Scheduled for outpatient surgery August 21, 2024. Will follow-up in clinic day prior. Procedure: Under mild sedation the patient was brought to the operating room and remained on the gurney in supine position. Timeout was performed. Of note left popliteal block performed preoperatively per anesthesia service. Well-padded pneumatic tourniquet applied to the left high calf. The left lower extremity was scrubbed, prepped and draped utilizing normal aseptic technique. Left foot and ankle were then exanguinated with Esmarch bandage and tourniquet inflated to 250 mmHg. Attention was directed to the posterior aspect of the left Achilles tendon, ankle joint dorsiflexion was limited with approximately 5 degrees of dorsiflexion with knee extended and flexed at the left lower extremity. A triple hemisection was performed percutaneously of the left Achilles tendon starting 1.5 cm proximal to the insertion with a medial hemisection followed by lateral hemisection and medial hemisection as third point of release each spaced 1.5 cm apart when loading the left ankle a lengthening of the Achilles was appreciated and Achilles was palpable and intact, able to dorsiflex 8 degrees beyond neutral. Incisions were irrigated and closed with 4-0 nylon. Attention was directed to the left forefoot where a dual incision was performed over the 1st and 2nd ray involving the cuneiforms and 1st and 2nd metatarsal through skin with a #15 blade with dissection carried down through subcutaneous tissue to the layer of periosteum and previous hardware. Each 2 incision required separate dissection. All bleeders were ligated and cauterized as necessary. Through the medial incision approximately 6 cm in length total of 3 screws from the first ray and second ray were removed from the left foot from bone without fragmentation or failure and passed from the operative field. From the third ray of the left foot a 4 mm screw was also removed without fragmentation or failure this was through the second more lateral incision and this was passed from the operative field. The 1st and 2nd tarsometatarsal joints were distracted, prepped for arthrodesis via curettage, subchondral drilling and for scaling with osteotome, packed with DBM, reduced and fused utilizing a [place] plate with 4 mm homerun screw and a straight slanted dorsal locking plate with 3.5 millimeter screws with excellent bony apposition and compression noted not violating adjacent joints. Anatomic reduction of the 1st and 2nd tarsometatarsal joints as well as congruent and reduced 3rd, 4th and 5th rays appreciated on the AP oblique and lateral views with intraoperative mini C arm. The incision was irrigated with copious amounts of sterile saline solution. Incisions were closed in a layered fashion with deep fascia and periosteum reapproximated with 2-0 Vicryl, subcutaneous tissue with 3-0 Vicryl and skin with chaparro. Incisions were dressed with Xeroform, sterile 4 x 4 gauze, Kerlix and Cong wrap to the left lower extremity. Left calf tourniquet was deflated and a prompt hyperemic response is noted to the distal digits of the left foot. Patient tolerated the procedure and anesthesia well and was transferred to the PACU with vital signs stable and vascular status intact. Following a period of postoperative monitoring she will be discharged home without home care instructions and scheduled follow-up was advised to remain strict nonweightbearing and elevate left foot while resting.
--- NOTE | 2024-08-21 11:25 | ANE.PACU2 ---
Inpatient post-anesthesia follow up: Airway intact: Yes Vital signs: Temperature 97.5 F Pulse Rate 70 Respiratory Rate 16 Blood Pressure 120/66 Pulse Oximetry 94 Oxygen Delivery Me thod Room Air Oxygen Flow Rate 8 Fraction of Inspir ed Oxygen Hydration adequate: Yes Nausea and vomiting: No Pain level: 1 Mental status: Baseline
== END 2024-08-21 11:38 | disposition home or self-care (01) ==
PROVIDERS: PCP Nurse Practitioner Family; Visit Provider Podiatrist Foot & Ankle Surgery
PROC: (CPT 28740; principal; 2024-08-21 08:40)
PROC: (CPT 28261; 2024-08-21 08:40)
PROC: (CPT 28730; 2024-08-21 08:40)
PROC: (CPT 28730; 2024-08-21 08:40)
DX: S92.202A Fracture of unspecified tarsal bone(s) of left foot, initial encounter for closed fracture (principal); S93.322A Subluxation of tarsometatarsal joint of left foot, initial encounter; X58.XXXA Exposure to other specified factors, initial encounter; M21.622 Bunionette of left foot; I10 Essential (primary) hypertension; E78.5 Hyperlipidemia, unspecified; E11.40 Type 2 diabetes mellitus with diabetic neuropathy, unspecified; Z79.4 Long term (current) use of insulin; Z79.84 Long term (current) use of oral hypoglycemic drugs
CPT/HCPCS: 28730; 27685; 20680 ×2; 36416; 73620; 76000; 82962; C1713; C9359; J0690; J1100; J2405; J2704; J2795; J3010; J7030; J9999

== ENCOUNTER → 2024-09-03 14:01 | Outpatient (BNVA) | payer OTHER, SELFPAY | PROVIDERS: PCP Nurse Practitioner Family; Visit Provider Podiatrist Foot & Ankle Surgery | DX: Z98.890 Other specified postprocedural states (principal); E11.69 Type 2 diabetes mellitus with other specified complication; Z79.4 Long term (current) use of insulin | CPT/HCPCS: 73630 ==

== ENCOUNTER → 2024-10-01 14:23 | Outpatient (BNVA) | payer OTHER, SELFPAY | PROVIDERS: PCP Nurse Practitioner Family; Visit Provider Podiatrist Foot & Ankle Surgery | DX: Z98.890 Other specified postprocedural states (principal); E11.69 Type 2 diabetes mellitus with other specified complication; Z79.4 Long term (current) use of insulin; Z79.84 Long term (current) use of oral hypoglycemic drugs | CPT/HCPCS: 73630 ==

== ENCOUNTER → 2024-10-22 10:17 | Outpatient (BNVA) | payer OTHER, SELFPAY | PROVIDERS: PCP Nurse Practitioner Family; Visit Provider Podiatrist Foot & Ankle Surgery | DX: Z98.890 Other specified postprocedural states (principal); E11.69 Type 2 diabetes mellitus with other specified complication; L60.3 Nail dystrophy; S93.305 Unspecified dislocation of left foot; X58.XXXD Exposure to other specified factors, subsequent encounter; M21.41 Flat foot [pes planus] (acquired), right foot; M21.42 Flat foot [pes planus] (acquired), left foot; L60.0 Ingrowing nail; Z79.84 Long term (current) use of oral hypoglycemic drugs; Z79.4 Long term (current) use of insulin | CPT/HCPCS: 73630 ==

== ENCOUNTER 2024-11-05 11:21 | Outpatient (CLI) | payer OTHER, SELFPAY ==
[2024-11-05 12:21] LABS: Creatinine Urine, Random 334 mg/dL (28-217)
[2024-11-05 12:38] LABS: Microalbum Creatinine Ratio Ur 775 mg/dL (0-20)
[2024-11-05 12:46] LABS: Estmated Average Glucose 163; Hemoglobin A1C 7.3 % (4.0-6.0)
[2024-11-05 12:48] LABS: Alanine Aminotransferase 21 U/L (0-33); Albumin Level 3.9 g/dL (3.5-5.2); Alkaline Phosphatase 72 U/L (35-105); Anion Gap 17.8 (5-19); Aspartate Amino Transferase 19 U/L (0-32); Blood Urea Nitrogen 24 mg/dL (8-23); Calcium 9.1 mg/dL (8.5-10.5); Carbon Dioxide 22 mmol/L (22-29); Chloride 106 mmol/L (98-107); Cholesterol 172 mg/dL (0-200); Globulin 2.9 g/dL (1.3-4.6); Glucose 155 mg/dL (65-115); HDL Cholesterol 42 mg/dL (60-100); Osmolality Calculated 299 mOsm/kg (285-295); Potassium 4.8 mmol/L (3.5-5.1); Sodium 141 mmol/L (136-145); Total Protein 6.8 g/dL (6.6-8.7); Triglycerides 216 mg/dL (0-150)
== END 2024-11-05 11:22 | disposition home or self-care (01) ==
PROVIDERS: PCP Nurse Practitioner Family; Visit Provider Internal Medicine
DX: E11.69 Type 2 diabetes mellitus with other specified complication (principal); E78.5 Hyperlipidemia, unspecified; M25.572 Pain in left ankle and joints of left foot; M79.672 Pain in left foot
CPT/HCPCS: 36415; 73610; 73620; 80053; 80061; 82044; 83036; 86337; 86341

== ENCOUNTER → 2024-11-19 14:19 | Outpatient (BNVA) | payer OTHER, SELFPAY | PROVIDERS: PCP Nurse Practitioner Family; Visit Provider Podiatrist Foot & Ankle Surgery | DX: Z98.890 Other specified postprocedural states (principal); S93.305A Unspecified dislocation of left foot, initial encounter; X58.XXXA Exposure to other specified factors, initial encounter; E11.69 Type 2 diabetes mellitus with other specified complication; M76.62 Achilles tendinitis, left leg; Z79.4 Long term (current) use of insulin; Z79.84 Long term (current) use of oral hypoglycemic drugs | CPT/HCPCS: 73630 ==

== ENCOUNTER → 2024-12-09 13:09 | Outpatient (BNVA) | payer OTHER, SELFPAY | PROVIDERS: PCP Nurse Practitioner Family; Visit Provider Podiatrist Foot & Ankle Surgery | DX: Z98.890 Other specified postprocedural states (principal); E11.69 Type 2 diabetes mellitus with other specified complication; L60.3 Nail dystrophy; Z79.4 Long term (current) use of insulin; Z79.84 Long term (current) use of oral hypoglycemic drugs | CPT/HCPCS: 73630 ==

== ENCOUNTER 2025-01-06 08:51 | Outpatient (CLI) | payer OTHER, SELFPAY ==
--- NOTE | 2025-01-06 08:55 | MM_ITS ---
WS: [id number] BILATERAL SCREENING DIGITAL TOMOSYNTHESIS MAMMOGRAM WITH CAD HISTORY: SCREENING COMPARISON: 11/18/2019, 10/14/2018 Bilateral CC and MLO views with tomosynthesis and synthetic mammography submitted. Computer aided detection analyzed. Breast composition: There are scattered areas of fibroglandular density. No suspicious masses, microcalcifications or architectural distortion. MM/MM scr BI tomosynthesis [id number] IMPRESSION: BI-RADS: 1 - Negative. FOLLOW UP: 1 Year Follow-up
== END 2025-01-06 08:52 | disposition home or self-care (01) ==
LOC: RAD 08:52
PROVIDERS: PCP Nurse Practitioner Family; Visit Provider Nurse Practitioner Family
DX: Z12.31 Encounter for screening mammogram for malignant neoplasm of breast (principal); R92.323 Mammographic fibroglandular density, bilateral breasts
CPT/HCPCS: 77063; 77067